=== PATIENT | female | born 1980 | race African-American/Black ===

== ENCOUNTER 2016-12-06 15:20 | Emergency (ER) | payer OTHER ==
[~2016-12-06] VITALS: Wt 93.0 kg
[2016-12-06] MEDS ORDERED: HYDROCODONE/APAP (5/325) TAB PO ONE (17:00)
--- NOTE | 2016-12-06 17:09 | RADRPT ---
PROCEDURE: XR Chest. CLINICAL INDICATION: Trauma, pain TECHNIQUE: Single frontal view of the chest was obtained. COMPARISON: None. FINDINGS: The cardiomediastinal silhouette is normal size. Pulmonary vasculature is within normal limits. Th e lungs are clear. No signs of pleural fluid or pneumothorax are seen. The osseous structures and soft tissues are unre markable. IMPRESSION: No evidence for active cardiopulmonary disease. RPTAT: HBST .Brett Myers MD, MD Date Time Electronically viewed and signed by .Brett Myers MD, on 12/06/2016 17:08 .T/
[2016-12-06] MEDS ORDERED: IBUP-1542 PO (18:17)
[2016-12-06] MEDS ORDERED: HYDR-906 PO (18:17)
--- NOTE | 2016-12-06 18:20 | ERD ---
ER Documentation Chief Complaint Date/Time DATE: 12/06/16 TIME: 18:18 Chief Complaint [facility] HPI This 36-year-old female fell 2 nights ago complains of diffuse chest wall pain. She has pain with inspiration and with speaking. She denies any hemoptysis, fevers, abdominal pain, neck pain, head injury. ROS All systems reviewed and are negative except as per history of present illness. Medications Home Meds Active Scripts Ibuprofen* (Motrin*) 600 Mg Tab, 600 MG PO Q6, #20 TAB Prov:JIM JEFFERS MD 12/06/16 Hydrocodone/Acetaminophen (Labadie 5-325 Tablet) 1 Each Tablet, 1 TAB PO Q6H Y for PAIN, #15 TAB Prov:JIM JEFFERS MD 12/06/16 PMhx/Soc Medical and Surgical Hx: pt denies Medical Hx, pt denies Surgical Hx Hx Alcohol Use: No Hx Substance Use: No Hx Tobacco Use: No Physical Exam Vitals Vital Signs Date Time Temp Pulse Resp B/P Pulse Ox O2 Delivery O2 Flow Rate FiO2 12/06/16 15:23 98.5 89 18 154/87 99 Physical Exam Const: [] Alert, [id number]. Head: Atraumatic Eyes: Normal Conjunctiva ENT: Normal External Ears, Nose and Mouth. Neck: Full range of motion..~ No meningismus. Resp: Clear to auscultation bilaterally. Mild generalized tenderness without point tenderness, deformities, skin changes or crepitance. Cardio: Regular rate and rhythm, no murmurs Abd: Soft, non tender, non distended. Normal bowel sounds Skin: No petechiae or rashes Back: No midline or flank tenderness Ext: No cyanosis, or edema Neur: Awake and alert Psych: Normal Mood and Affect Results 24 hrs Current Medications Medications (Trade) Dose Ordered Sig/Waylon Route PRN Reason Start Time Stop Time Status Last Admin Dose Admin Acetaminophen/ Hydrocodone Bitart (Labadie (5/325)) 1 tab ONCE ONCE PO 12/06/16 17:00 12/06/16 17:01 DC 12/06/16 16:51 Procedures/MDM Chest X-ray 1V Interpreted by me: Soft Tissue: No acute abnormalities Bones: No acute abnormalities Mediastinum/Cardiac Silhouette/Lungs: [No acute abnormalities]. Patient has normal 1 view chest x-ray Patient's test is negative by request. Patient presents with signs and symptoms of chest wall strain or contusion. There is no signs or symptoms to suggest pulmonary embolism, cardiac contusion, significant abdominal trauma, fracture, dislocation, additional causes of pain after falling and hitting her chest wall. She will be treated with a short course of Labadie and ibuprofen and observation at home. Patient should return for fevers, blood, new or worsening symptoms or with primary care doctor this week. Departure Diagnosis: Primary Impression: Chest wall contusion Encounter type: initial encounter Laterality: unspecified laterality Qualified Code: S20.219A - Chest wall contusion, unspecified laterality, initial encounter Additional Impression: Rib pain Condition: Stable Patient Instructions: Chest Wall Contusion Additional Instructions: X-ray and test normal today. Likely chest wall strain. Recheck for new or worsening symptoms-fever, blood, with primary care doctor. JIM JEFFERS MD Dec 06, 2016 18:19
[2016-12-06 18:32] VITALS: BP 148/80; PULSE 90; RESP 18; TEMP 98
== END 2016-12-06 18:35 | disposition home or self-care (01) ==
LOC: FTE 15:20
DX: S20.219A Contusion of unspecified front wall of thorax, initial encounter (principal); W19.XXXA Unspecified fall, initial encounter; Y92.9 Unspecified place or not applicable
CPT/HCPCS: 71010; Z7502; Z7610